=== PATIENT | male | born 1950 | race Caucasian/White ===

== ENCOUNTER 2016-07-15 11:15 | Emergency (ER) | payer OTHER ==
[2016-07-15 11:20] VITALS: BP 156/91; PULSE 81; RESP 16; TEMP 97.9; O2SAT 94
--- NOTE | 2016-07-15 11:39 | EDPHY ---
H & P Stated Complaint: Bleeding from PICC line Time Seen by Provider: 07/15/16 11:38 HPI/ROS: CHIEF COMPLAINT: Bleeding from PICC line HISTORY OF PRESENT ILLNESS: The patient presents to the ED after he has developed some bleeding from the extension tubing on his PICC line. The patient is currently receiving IV antibiotics for a postoperative staph infection. He has 4 days of antibiotics left. The patient was seen at Infectious Disease yesterday and reportedly had extension to be placed at that point time. The patient did flush his PICC line several times today but is noted some reflux of blood into the extension tubing. The patient also reported some leakage of blood from the extension tubing. The patient denies any acute fever, he has no complaints of acute low back pain or new weakness. The patient is scheduled to get IV antibiotics for an additional 4 days. REVIEW OF SYSTEMS: A comprehensive 10 point review of systems is otherwise negative aside from elements mentioned in the history of present illness. Source: Patient Exam Limitations: No limitations - Personal History Current Tetanus/Diphtheria Vaccine: Yes Current Tetanus Diphtheria and Acellular Pertussis (TDAP): Yes Tetanus Vaccine Date: 10 Y - Medical/Surgical History Hx Asthma: No Hx Chronic Respiratory Disease: No Hx Diabetes: No Hx Cardiac Disease: No Hx Renal Disease: No Hx Cirrhosis: No Hx Alcoholism: No Hx HIV/AIDS: No Hx Splenectomy or Spleen Trauma: No Other PMH: stomach bleed, cervical surgery, right shouldersurgery, eye surgery, foot surgery - Social History Smoking Status: Never smoked - Physical Exam Exam: General Appearance: Alert, no distress Eyes: Pupils equal and round no pallor or injection ENT, Mouth: Mucous membranes moist Respiratory: There are no retractions, lungs are clear to auscultation Cardiovascular: Regular rate and rhythm Gastrointestinal: Abdomen is soft and nontender, no masses, bowel sounds normal Neurological: A&O, normal motor function, normal sensory exam, normal cranial nerves Skin: Warm and dry, no rashes Musculoskeletal: Neck is supple nontender Extremities: PICC line noted to right upper extremity, there is blood in the extension tubing, no obvious bleeding in the ED. Constitutional: Initial Vital Signs Temperature (C) 36.6 C 07/15/16 11:16 Heart Rate 81 07/15/16 11:16 Respiratory Rate 16 07/15/16 11:16 Blood Pressure 156/91 H 07/15/16 11:16 O2 Sat (%) 94 07/15/16 11:16 O2 Delivery Mode Room Air Allergies/Adverse Reactions: cat dander Allergy (Verified 05/05/16 20:42) Home Medications: Medication Instructions Recorded Pantoprazole Sodium [Protonix 40mg 40 mg PO DAILY 08/26/12 (*)] Methocarbamol [Robaxin 750 mg (*)] 750 mg PO QID PRN #60 tab 05/07/16 morphINE SR [MS Contin/Oramorph SR 30 mg PO BID #60 tab 05/07/16 30 mg (*)] Allopurinol [Allopurinol 300 MG 600 mg PO DAILY 05/24/16 (RX)] Simvastatin 10 mg PO DAILY 05/24/16 Methocarbamol [Robaxin 750 mg (*)] 750 mg PO QID PRN #0 tab 05/26/16 Sennosides/Docusate Sodium 1 - 2 tab PO BID #0 tab 05/26/16 [Senokot-S] oxyCODONE/APAP 5/325 [Percocet 1 - 2 tab PO Q4HRS PRN #0 tab 05/26/16 5/325 (*)] predniSONE 10 mg PO DAILY #0 tab 05/26/16 predniSONE 20 mg PO DAILY #0 tablet 05/26/16 predniSONE 30 mg PO DAILY #0 tab 05/26/16 Medical Decision Making ED Course/Re-evaluation: In the ED we did flush the patient's PICC line in replace the valve and observe the patient without any evidence of reflux of blood into the extension tubing or leaking. The patient has no clinical evidence of a cellulitis or DVT. The patient will be discharged home with this point time. He has been instructed to return to the ED for recurrent problems or concerns. He should follow up as scheduled with his infectious disease doctor. Departure - Departure Disposition: Home, Routine, Self-Care Clinical Impression: Bleeding from PICC line Condition: Good Instructions: Peripherally Inserted Central Catheters and Midline Catheters (ED ) Additional Instructions: 1. Return to the emergency department for any recurrent bleeding, inability to flush your PICC line, fever, redness or other concerns. 2. Please follow up as scheduled with Dr. Godinez Referrals: Aye Viera NP [Primary Care Provider] - As per Instructions
== END 2016-07-15 12:27 | disposition home or self-care (01) ==
DX: T82.838A Hemorrhage due to vascular prosthetic devices, implants and grafts, initial encounter (principal); Y71.2 Prosthetic and other implants, materials and accessory cardiovascular devices associated with adverse incidents

== ENCOUNTER 2018-07-30 05:46 | Day surgery (SDC) | payer OTHER ==
[2018-07-30] MEDS ORDERED: ACETAMINOPHEN 500 MG TAB PO ONE (06:06)
[2018-07-30] MEDS ORDERED: ceFAZolin 2 GM/DEXTROSE 100 ML IV ONE (06:06)
[2018-07-30] MEDS ORDERED: LR 1,000 ML IV ONE (06:07)
[2018-07-30] MEDS ORDERED: LIDOCAINE 1% 2 ML INJ ID PRN (06:07)
[2018-07-30] MEDS ORDERED: CHLORHEXIDINE GLUC HIBICLENS 118 ML BTL TP ONE (06:28)
[2018-07-30] MEDS ORDERED: BUPIVACAINE 0.25% 30 ML SDV ONE (06:29)
[2018-07-30] MEDS ORDERED: EPINEPHrine 1 MG/ML INJ ONE (06:29)
[2018-07-30] MEDS ORDERED: THROMBIN (BOVINE) 5,000 UNIT VIAL TP ONE (06:29)
[2018-07-30] MEDS ORDERED: BACITRACIN 50,000 UNITS/10 ML SYR IRR ONE (06:30)
--- NOTE | 2018-07-30 06:52 | PDHPUP ---
History & Physical Update H&P update statement: This history and physical update is based on an assessment of the patient which was completed after admission or registration (within 24 hours), but prior to the surgery/procedure. H&P update: no change in patient's condition since H&P completed
--- NOTE | 2018-07-30 06:53 | PDANEPAE ---
ANE Past Medical History - Cardiovascular History Hx Hypertension: No Hx Arrhythmias: No Hx Chest Pain: No Hx Coronary Artery / Peripheral Vascular Disease: No Hx CHF / Valvular Disease: No Hx Palpitations: No - Pulmonary History Hx COPD: No Hx Asthma/Reactive Airway Disease: No Hx Recent Upper Respiratory Infection: No Hx Oxygen in Use at Home: No Hx Sleep Apnea: No Sleep Apnea Screening Result - Last Documented: Negative Pulmonary History Comment: CAT ALLERGIES - Neurologic History Hx Cerebrovascular Accident: No Hx Seizures: No Hx Dementia: No - Endocrine History Hx Diabetes: No - Renal History Hx Renal Disorders: No - Liver History Hx Hepatic Disorders: No - Neurological & Psychiatric Hx Hx Neurological and Psychiatric Disorders: Yes Neurological / Psychiatric History Comment: parsonage. right hand numb(fingers) . left side numbness from lower back to foot - Cancer History Hx Cancer: Yes Cancer History Comment: esophageal - Congenital Disorder History Hx Congenital Disorders: No - GI History Hx Gastrointestinal Disorders: Yes Gastrointestinal History Comment: HX GI BLEED. BARRETTS ESOPHAGUS. ACID REFLUX - Other Health History Other Health History: none - Chronic Pain History Chronic Pain: Yes (LOW BACK, L HIP, L LEG) - Surgical History Prior Surgeries: CERVICAL FUSION X2 2012. BUNIONECTOMY 2013. SHOULDER R RTC. EYE SURG L. GI BLEED. barrets esophagus tissue removal q 3 mths. t11/12 fusion ANE Review of Systems Review of Systems: - Exercise capacity METS (RN): 5 METS ANE Patient History - Allergies Allergies/Adverse Reactions: cat dander Allergy (Verified 07/16/18 11:19) - Home Medications Home Medications: Allopurinol [Allopurinol 300 MG (RX)] 300 mg PO BID 07/15/18 [Last Taken ] Cephalexin [Cephalexin] 500 mg PO BID 07/15/18 [Last Taken 07/15/18] Gabapentin [Neurontin 300 MG (*)] 300 mg PO HS PRN 07/15/18 [Last Taken Unknown] Pantoprazole Sodium [Protonix 40mg (*)] 40 mg PO BID 07/15/18 [Last Taken ] Simvastatin 20 mg PO DAILY 07/15/18 [Last Taken 07/15/18] - NPO status NPO Status: no food or drink >8 hours NPO Since - Liquids (Date): 07/29/18 NPO Since - Liquids (Time): 20:00 NPO Since - Solids (Date): 07/29/18 NPO Since - Solids (Time): 20:00 - Anes Hx Anes Hx: no prior problems - Smoking Hx Smoking Status: Never smoked - Family Anes Hx Family Hx Anesthesia Complications: none ANE Labs/Vital Signs - Vital Signs Blood Pressure: 139/92 Heart Rate: 72 Respiratory Rate: 8 O2 Sat (%): 95 Height: 198.12 cm Weight: 133.81 kg ANE Physical Exam - Airway Neck exam: FROM Mallampati Score: Class 2 Mouth exam: normal dental/mouth exam - Pulmonary Pulmonary: no respiratory distress - Cardiovascular Cardiovascular: regular rate and rhythym - ASA Status ASA Status: III ANE Anesthesia Plan Anesthesia Plan: general endotracheal anesthesia
[2018-07-30] MEDS ORDERED: MIDAZOLAM 2 MG/2 ML VIAL IVP ONE (06:58)
[2018-07-30] MEDS ORDERED: PROPOFOL 200 MG/20 ML VIAL ONE (07:05)
[2018-07-30] MEDS ORDERED: REMIFENTANIL HCL 1 MG VIAL ONE (07:05)
[2018-07-30] MEDS ORDERED: PROPOFOL/EMULSION 500 MG/50 ML BOTTLE IV ONE ×2 (07:05→08:48)
[2018-07-30] MEDS ORDERED: fentaNYL 100 MCG/2 ML INJ ONE ×2 (07:05→08:48)
[2018-07-30] MEDS ORDERED: ROCURONIUM 50 MG/5 ML VIAL ONE (07:15)
[2018-07-30] MEDS ORDERED: LIDOCAINE 2% 5 ML SDV ONE (07:15)
[2018-07-30] MEDS ORDERED: DEXAMETHASONE 4 MG/ML VIAL ONE ×2 (07:39)
[2018-07-30] MEDS ORDERED: TRANEXAMIC ACID 1000 MG IV ONE (08:00)
[2018-07-30] MEDS ORDERED: SODIUM CHLORIDE IV ONE (08:00)
[2018-07-30] MEDS ORDERED: ONDANSETRON 4 MG/2 ML VIAL IVP PRN ×2 (08:56→09:53)
[2018-07-30] MEDS ORDERED: NALOXONE HCL 0.4 MG/ML INJ IVP PRN (08:56)
[2018-07-30] MEDS ORDERED: HYDROmorphONE/DILAUDID 2 MG/ML INJ IVP PRN (08:56)
[2018-07-30] MEDS ORDERED: PROMETHAZINE HCL 25 MG/ML INJ IVP PRN (08:56)
[2018-07-30] MEDS ORDERED: fentaNYL 100 MCG/2 ML INJ IVP PRN (08:56)
[2018-07-30] MEDS ORDERED: ONDANSETRON 4 MG/2 ML VIAL ONE (09:13)
--- NOTE | 2018-07-30 09:38 | POSTANESTH ---
Post Anesthetic Evaluation Cardiovascular Status: Similar to Pre-Op Cond Respiratory Status: Similar to Pre-op Cond. Level of Consciousness/Mental Status: Alert and Oriented, Mildly Sleepy, Arousable Pain Control: Adequate, Prn Tx Ordered Nausea/Vomiting Control: Adequate, Prn Tx Ordered Complications Possibly Related to Anesthesia: None Noted
[2018-07-30] MEDS ORDERED: LACTULOSE 20 GM/30 ML UDCUP PO PRN (09:53)
[2018-07-30] MEDS ORDERED: METHOCARBAMOL 750 MG TAB PO PRN (09:53)
[2018-07-30] MEDS ORDERED: ONDANSETRON DISINTEGRATING 4 MG TAB PO PRN (09:53)
[2018-07-30] MEDS ORDERED: diphenhydrAMINE 25 MG CAP PO PRN (09:53)
[2018-07-30] MEDS ORDERED: oxyCODONE IR 5 MG TAB PO PRN (09:53)
[2018-07-30] MEDS ORDERED: BISACODYL 10 MG SUPP PR PRN (09:53)
[2018-07-30] MEDS ORDERED: MAGNESIUM HYDROXIDE 30 ML UDCUP PO PRN (09:53)
--- NOTE | 2018-07-30 09:53 | SOAPPROG ---
SOAP Progress Note Assessment/Plan: POST OP CHECK: Assessment: Doing well s/p L4/5 Limiflex and Left L45 laminotomy Plan: CPM IN PACU VU to bulb suction Keep patient in obs until DC 07/30/18 09:50 P Subjective: Awake, alert, comfortable. states his left leg feels "less numb." Objective: Vital Signs Temp Pulse Resp BP Pulse Ox 37 C 72 8 L 139/92 H 95 07/30/18 06:18 07/30/18 07:48 07/30/18 07:48 07/30/18 07:48 07/30/18 07:48 Vitals: HR: 70 BP:132/83 O2: 99% Neuro: CHAUHAN, sens + LT follows commands 5-/5 left DF,4/5 EHL, 5/5 quad,hamstring. Negative left leg SLR Right leg 5/5, sens +Lt Awake, alert, following commands ICD10 Worksheet Patient Problems: Problems Problem Status Onset Thoracic spinal stenosis Acute
[2018-07-30] MEDS ORDERED: GABAPENTIN 300 MG CAP PO PRN (09:56)
--- NOTE | 2018-07-30 10:01 | POSTOPPROG ---
Post Op Note Date of Operation: 07/30/18 Surgeon: Esteban Newman Body Work Auto Trimmer: Sammy Anglin Anesthesiologist: Livier Anesthesia: GET(General Endotracheal) Pre-op Diagnosis: L4/5 DJD, stenosis and spondylolisthesis Post-op Diagnosis: same Indication: Left leg pain Procedure: Left L4/5 hemilaminotomy and L4/5 Limiflex Findings: L4/5 stenosis Inf/Abcess present in the surg proc area at time of surgery?: No EBL: Minimal Complications: None Drains: Сергей Perkins (to bulb suction) Specimen(s): None
--- NOTE | 2018-07-30 12:27 | GOP ---
DATE OF OPERATION: 07/30/2018 SURGEON: Esteban Newman MD NEUROSURGEON: Esteban Newman MD GREEN MARKETING ANALYST: CELINA Champagne ANESTHESIA: General endotracheal. PREOPERATIVE DIAGNOSIS: 1. Severe L4-5 spinal stenosis with grade 1 spondylolisthesis. 2. Intractable back and left leg pain. 3. Morbid obesity. POSTOPERATIVE DIAGNOSIS: 1. Severe L4-5 spinal stenosis with grade 1 spondylolisthesis. 2. Intractable back and left leg pain. 3. Morbid obesity. PROCEDURE PERFORMED: Minimally invasive left-sided L4-5 posterior hemilaminectomy medial facetectomy and foraminotomy with central canal decompression. Placement of limited flex device at L4-5. Use of intraoperative microscopy and fluoroscopy. FINDINGS: ESTIMATED BLOOD LOSS: Trace. INDICATIONS: The patient is a 67-year-old man with intractable low back pain and left lower extremity radicular symptoms secondary to severe spinal stenosis and grade 1 spondylolisthesis. He has failed conservative care and presents now for surgical decompression and placement of a Limiflex device. DESCRIPTION OF PROCEDURE: After informed consent was obtained, the patient was taken to the operating room and placed in the prone position on the Сергей table. The lumbosacral area was prepped and draped in sterile fashion. After fluoroscopic localization of the correct level, the subcutaneous and intramuscular tissues were infiltrated with local anesthesia. A midline linear incision was then created over the L4-5 spinous processes. This was carried down to the fascial layer, which was then incised using monopolar electrocautery and carried in the subperiosteal plane along the spinous processes and lamina at the L4-5 level. Intraoperative fluoroscopy was again utilized to verify the correct level. Following this, a minimally invasive posterior hemilaminectomy defect was created with a medial facetectomy due to the amount of lateral recess stenosis. There was a synovial cyst there that was resected and the left L5 nerve root and central canal and thecal sac were thoroughly decompressed. Following this, the Limiflex device was placed in the standard fashion using biplanar fluoroscopic image guidance. A drain was then placed. The wound was copiously irrigated with antibiotic irrigation. The subcutaneous and intramuscular tissues were re-infiltrated with local anesthesia. The wound was closed in a layered fashion using interrupted Vicryl sutures, followed by Steri-Strips on the skin. COMPLICATIONS: None. DISPOSITION: The patient is currently in the process of being repositioned for extubation. /[id number]/MODL MTDD
[2018-07-30 13:29] VITALS: BP 101/63
[2018-07-30] MEDS ORDERED: ACETAMINOPHEN 500 MG TAB PO SCH (14:00)
[2018-07-30] MEDS ORDERED: POLYETHYLENE GLYCOL 3350 17 GM PKT PO SCH (16:00)
[2018-07-30] MEDS ORDERED: FAMOTIDINE 20 MG TAB PO SCH (21:00)
[2018-07-30] MEDS ORDERED: SENNOSIDES/DOCUSATE SODIUM TAB PO SCH (21:00)
[2018-07-30] MEDS ORDERED: PANTOPRAZOLE SODIUM 40 MG TAB PO SCH (21:00)
[2018-07-30] MEDS ORDERED: ALLOPURINOL 300 MG TAB PO SCH (21:00)
[2018-07-31] MEDS ORDERED: ENOXAPARIN 40 MG/0.4 ML SYR SC SCH (09:00)
[2018-07-31] MEDS ORDERED: ATORVASTATIN CALCIUM 10 MG TAB PO SCH (09:00)
== END 2018-07-30 13:16 | disposition home or self-care (01) ==
LOC: UNDOADMOB 05:46 → INTOOBSV 05:46 → FSGY 05:46 → F3N 05:46 → EDSTATUS 10:45 → UNDODISOB 13:16 → FSGY 13:16
PROVIDERS: ATTEND Neurological Surgery
PROC: 8E0WXBZ Computer Assisted Procedure of Trunk Region (ICD-10-PCS; principal; 2018-07-30 07:15)
PROC: 00NY0ZZ Release Lumbar Spinal Cord, Open Approach (ICD-10-PCS; principal; 2018-07-30 07:15)
PROC: 0QH004Z Insertion of Internal Fixation Device into Lumbar Vertebra, Open Approach (ICD-10-PCS; principal; 2018-07-30 07:15)
PROC: BR191ZZ Fluoroscopy of Lumbar Spine using Low Osmolar Contrast (ICD-10-PCS; principal; 2018-07-30 07:15)
DX: M43.16 Spondylolisthesis, lumbar region (principal); M48.061 Spinal stenosis, lumbar region without neurogenic claudication; M51.36 Other intervertebral disc degeneration, lumbar region; K22.70 Barrett's esophagus without dysplasia; E66.01 Morbid (severe) obesity due to excess calories; Z86.14 Personal history of Methicillin resistant Staphylococcus aureus infection; Z98.1 Arthrodesis status
CPT/HCPCS: C1713; J0171; J0690; J1100; J2250; J2405; J2704; J3010

== ENCOUNTER 2018-08-12 15:34 | Emergency (ER) | payer OTHER ==
--- NOTE | 2018-08-12 16:16 | EDPHY ---
General - History Smoking Status: Never smoked Time Seen by Provider: 08/12/18 15:46 Narrative: CLINICAL IMPRESSION: URTICARIA ASSESSMENT/PLAN: Pleasant 67-year-old male presents to the emergency department with 2 days of scattered urticaria in the setting of lumbar back surgery. Please see HPI for full details. Patient has stable vital signs, no fever or chills, no nausea, vomiting, malaise, weakness and no incision site dehiscence or signs of cellulitis, epidural abscess, or discharge. 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 I spoke with Dr. Godinez today who did not feel that patient's antibiotic regimen need to be changed nor did he feel additional antibiotic should be added given that there is no obvious source of infection. This may simply be a delayed reaction to either pain medication or anesthesia. Patient has no respiratory complaints and no hypoxia. I also discussed with Umesh from neurosurgery who prefer that we avoid steroids for patient's urticaria secondary recent surgery. Patient was recommended to take antihistamines and H2 blockers at home. A prescription for hydroxyzine was provided. He has a follow-up appointment with Neurosurgery in 2 days and was advised to follow up with infectious disease as well. Continue daily Keflex. Warning signs for return to emergency department sooner outlined and discharge. DIFFERENTIAL DX: Differential includes but not limited to urticarial reaction, delayed allergic reaction, unlikely early presentation of staph infection. ED PROCEDURES: See lab and/or imaging results below ED COURSE: 4:15 p.m.: Discussed with Dr. Godinez. He does not feel that he needs to add any additional antibiotic therapy aside from patient's daily Keflex. He encouraged allergic reaction treatment and close monitoring. Unsure at this point if this is a delayed reaction versus early presentation of staph. He is happy to see the patient in clinic. 4:19 p.m.: Discussed with doctor Umesh V physician dam tender assistant from neurosurgery. It was felt patient should avoid steroids given his recent surgery but is okay to have other antihistamine therapy. This provider believes patient has a postop follow-up appointment this coming Sunday or . 5:00 p.m.: Patient reassessed, states he is feeling about the same. No worsening urticaria, no respiratory symptoms, hypoxia or respiratory distress. No nausea or vomiting. Will plan to discharge with prescription for hydroxyzine to use as needed. Follow up with Neurosurgery and Infectious Disease this week. CHIEF COMPLAINT: Hives all over HPI: Very pleasant 67-year-old male presents to the emergency department with approximately 2 and half days of pruritic, worsening hives to the inner thighs, left buttock, inner knees, right forearm, and scalp. Patient is 2 weeks postop lumbar spine surgery by Dr. Núñez. He reports in 2016 he had "the exact same reaction after back surgery". He was seen in the emergency department treated for an allergic reaction however 4 days after that treatment he developed severe staph infection in his surgical site and was admitted to the hospital, went through surgery again, and was on a PICC with IV antibiotics for 11 weeks. Patient is very concerned that he may have the same problem again. He is followed by Dr. Godinez and has been on Keflex daily since 2016. He contacted his neurosurgeon and Dr. Godinez today and was told to come to the ED. His only new medication is hydrocodone which he stops taking 3 or 4 days ago. He has been using an [id number] anti-itch cream. He reports no fevers, chills and states his back "feels the best today that has all week" . His reports today he does have a little bit of a decreased appetite and is feeling slightly more fatigued. PAST MEDICAL HISTORY: Esophageal cancer, prior orthopedic surgeries, 2 weeks postop lumbar spine surgery See nurse/triage notes for additional history if applicable Pertinent Past Surgical History: Multiple orthopedic surgeries and back surgery Family History: Noncontributory Social History: , here with his , past history of staph infection in vertebral hardware. REVIEW OF SYSTEMS: All other systems negative Constitutional: No fever, no chills, appetite change. Eyes: No discharge, vision change ENT: No sore throat, congestion, ear pain. Cardiovascular: No chest pain, no palpitations. Respiratory: No cough, no shortness of breath. Gastrointestinal: No abdominal pain, no vomiting, diarrhea. Genitourinary: No hematuria, dysuria, flank pain, pelvic pain Musculoskeletal: Improving back pain, joint swelling, joint pain, myalgias. Skin: Rash to right forearm, scalp, inguinal region, and left buttock Neurological: No headache, dizziness, weakness. PHYSICAL EXAM: General Appearance: Alert, oriented, appropriate, cooperative, NAD, well hydrated, non-toxic appearing, VSS, no hypoxia or respiratory distress. HEENT: TMs are clear bilaterally no perforation or FB, no injection, no evidence of serous or mucopurulent otitis. Oropharynx clear is no erythema or exudates, no tonsillar hypertrophy or asymmetry. No intraoral lesions Dentition without abnormality. Eyes: PERRLA, no acute vision change, nystagmus, swelling, discharge, pain or photosensitivity. Conjunctiva pink, no pallor or injection Neck: Supple, nontender, no lymphadenopathy, no midline pain, FROM, no meningismus. Respiratory: There are no retractions, lungs are clear to auscultation. Cardiac: Regular rate and rhythm, no murmurs or gallops. Gastrointestinal: Abdomen is soft, nontender Skin: Blanching, urticarial lesions noted to the scalp, right forearm, bilateral inguinal regions, and left upper buttock. No signs of secondary infection. Recent lumbar spine surgical incision is well appearing, no erythema , fluctuance, dehiscence, discharge, or suggestion of cellulitis, deep space abscess, epidural abscess, necrotizing fasciitis or osteomyelitis Musculoskeletal: Extremities are symmetrical, full range of motion, no tenderness, deformity, swelling, or erythema. Patient ambulates without difficulty. No reports of bowel or bladder incontinence or saddle anesthesia Psychiatric: Patient is oriented X 3, there is no agitation. MEDICAL DECISION MAKING: Patient was seen independently. Secondary supervising physician at time of evaluation was Dr. Kendall . Diagnosis: Urticaria. New, requires workup Summary: See Assessment and Plan for summary of ED visit Discussed patient with another provider: Umesh Coleman from neurosurgery Patient Progress: Stable for discharge. (Florin Noe) The patient was evaluated and managed by the physician dam tender assistant. I have reviewed this chart and I agree with the findings and plan of care as documented , as indicated by my signature. I am the secondary supervising physician. ( Yoko Kendall) - Objective Vital Signs: Initial Vital Signs Temperature (C) 36.4 C 08/12/18 15:41 Heart Rate 93 08/12/18 15:41 Respiratory Rate 17 08/12/18 15:41 Blood Pressure 133/106 H 08/12/18 15:41 O2 Sat (%) 95 08/12/18 15:41 O2 Delivery Mode Room Air Allergies/Adverse Reactions: cat dander Allergy (Verified 07/16/18 11:19) Home Medications: Medication Instructions Recorded Allopurinol [Allopurinol 300 MG 300 mg PO BID 07/15/18 (RX)] Cephalexin 500 mg PO BID 07/15/18 Gabapentin [Neurontin 300 MG (*)] 300 mg PO HS PRN 07/15/18 Pantoprazole Sodium [Protonix 40mg 40 mg PO BID 07/15/18 (*)] Simvastatin 20 mg PO DAILY 07/15/18 hydrOXYzine HCL [hydrOXYzine HCL 25 mg PO Q8 PRN #10 tab 08/12/18 (RX)] Medications Given: Discontinued Medications Diphenhydramine HCl (Benadryl) 50 mg PO EDNOW ONE Stop: 08/12/18 16:21 Last Admin: 08/12/18 16:24 Dose: 50 mg Famotidine (Pepcid) 40 mg PO EDNOW ONE Stop: 08/12/18 16:21 Last Admin: 08/12/18 16:24 Dose: 40 mg Departure - Departure Disposition: Home, Routine, Self-Care Clinical Impression: Urticaria Condition: Good Instructions: Urticaria (ED) Additional Instructions: DISCHARGE INSTRUCTIONS FROM YOUR DOCTOR Thank you for visiting our emergency department today. Please keep in mind that discharge from the emergency department does not mean that there is nothing wrong - it simply means that we have not identified an emergency condition that requires further evaluation or treatment in the hospital. You should always plan to follow up with primary care for re-evaluation of your condition in the next 2-3 days. If you have been referred to a specialist, please call as soon as possible (today or tomorrow) to schedule your follow up appointment at the appropriate time. WE HAVE SPOKEN TO BOTH HER NEUROSURGEON AN INFECTIOUS DISEASE DOCTOR TODAY. THEY DID NOT FEEL THAT WE NEED TO INITIATE IV ANTIBIOTIC THERAPY OR CHANGE HER CURRENT ANTIBIOTIC REGIMEN. THEY HAVE RECOMMENDED AVOIDING STEROIDS DUE TO HER RECENT SURGERY. WE RECOMMEND THAT YOU USE ANTIHISTAMINES AND H2 BLOCKERS AT HOME. YOU CAN USE ELO DURING THE DAY AND BENADRYL AT NIGHT. PEPCID AC CAN BE USED ONCE OR TWICE DAILY. WE ALSO GAVE A PRESCRIPTION FOR HYDROXYZINE WHICH WILL FURTHER HELP ITCHING BUT MAKE YOU MORE TIRED. PLEASE FOLLOW-UP WITH THEIR CLINICS THIS WEEK. RETURN TO THE EMERGENCY DEPARTMENT IMMEDIATELY FOR WORSENING RASH, INCISION SITE REDNESS OR DISCHARGE, FEVER OR CHILLS, GENERALIZED FEELING UNWELL, NAUSEA, VOMITING OR ANY OTHER CONCERN. People present with illnesses and injuries in different ways, and it is always possible that we have missed something. You may always return for re-evaluation if symptoms worsen or if they are not improving or if you develop new/different symptoms. Again, thank you for choosing our emergency department. We hope that you feel better. Referrals: Ruben Francois MD [Primary Care Provider] - As per Instructions Esteban Newman MD [Medical Doctor] - As per Instructions Elvis Godinez MD [Medical Doctor] - As per Instructions Prescriptions: hydrOXYzine HCL [hydrOXYzine HCL (RX)] 25 mg PO Q8 PRN #10 tab PRN Reason: Itching
[2018-08-12] MEDS ORDERED: diphenhydrAMINE 25 MG CAP PO ONE (16:20)
[2018-08-12] MEDS ORDERED: FAMOTIDINE 20 MG TAB PO ONE (16:20)
[2018-08-12 17:22] VITALS: BP 127/79
== END 2018-08-12 17:22 | disposition home or self-care (01) ==
DX: L50.9 Urticaria, unspecified (principal)

== ENCOUNTER 2018-08-15 12:38 | Emergency (ER) | payer OTHER ==
--- NOTE | 2018-08-15 13:30 | EDPHY ---
H & P Time Seen by Provider: 08/15/18 12:49 HPI/ROS: CHIEF COMPLAINT: Skin rash HISTORY OF PRESENT ILLNESS: 67-year-old man had lumbar spine surgery in July 30. Said he had a similar rash with his previous spine surgery that resolved after steroids. This was in 2015. Says he used this same scrubbed preoperatively both times was worried that was the source. He presented 2 days ago with hives and urticaria was treated with antihistamines. He presents today with worsening rash, says that it "exploded" and he is unable to tolerate the symptoms of being very itchy all over. Not associated with tongue swelling or throat tightness or wheezing or abdominal cramping or vomiting. Not better with antihistamines at this time. Symptoms severe. REVIEW OF SYSTEMS: Eye: no change in vision ENT: no sore throat Cardiac: no chest pain or syncope Pulmonary: no cough or SOB Abdomen: no vomiting, diarrhea, abdominal pain Musculoskeletal: no back pain Skin: HPI Neuro: no headache Constitutional: no fever : no urinary symptoms A comprehensive 10 point review of systems is otherwise negative aside from elements mentioned in the history of present illness. PAST MEDICAL HISTORY: Includes multiple spine surgeries, esophageal cancer, eye and foot surgery. Social history: Nonsmoker General Appearance: Alert and conversant, cooperative. Eyes: No scleral icterus. ENT, Mouth: Normal mucous membranes. No angioedema. Respiratory: Normal respiratory effort, breath sounds equal, lungs are clear to auscultation. No wheezing. Cardiovascular: Regular rate and rhythm. Gastrointestinal: Abdomen is soft and non tender. Neurological: Alert, ambulatory, normal speech. Skin: Lumbar incision clean dry and intact. He has diffuse urticaria which is raised red welts without tenderness or lymphangitis or ecchymosis or bruising. Musculoskeletal: No peripheral edema. Psychiatric: Not agitated. Emergency Department course/MDM: Patient clearly presents with diffuse urticaria. Call is placed to Neurosurgery. Discussed with Merritt/Naveen from Neurosurgery, ok to use steroids. Epi 0.15 IM and oral prednisone 60 in the emergency department. Does not have evidence of anaphylaxis or airway involvement. Steroids discussed and consented. Smoking Status: Never smoked Constitutional: Initial Vital Signs Temperature (C) 36.4 C 08/15/18 12:45 Heart Rate 95 08/15/18 12:45 Respiratory Rate 16 08/15/18 12:45 Blood Pressure 161/91 H 08/15/18 12:45 O2 Sat (%) 92 08/15/18 12:45 O2 Delivery Mode Room Air Allergies/Adverse Reactions: cat dander Allergy (Verified 08/15/18 12:44) Home Medications: Medication Instructions Recorded Allopurinol [Allopurinol 300 MG 300 mg PO BID 07/15/18 (RX)] Cephalexin 500 mg PO BID 07/15/18 Gabapentin [Neurontin 300 MG (*)] 300 mg PO HS PRN 07/15/18 Pantoprazole Sodium [Protonix 40mg 40 mg PO BID 07/15/18 (*)] Simvastatin 20 mg PO DAILY 07/15/18 hydrOXYzine HCL [hydrOXYzine HCL 25 mg PO Q8 PRN #10 tab 08/12/18 (RX)] predniSONE 10 mg PO AD #15 tab 08/15/18 Medical Decision Making Differential Diagnosis: Considered but think unlikely to have thrombocytopenia, cellulitis, anaphylaxis , surgical infection. - Data Points Medications Given: Discontinued Medications Epinephrine HCl (Epinephrine) 0.15 mg IM EDNOW ONE Stop: 08/15/18 13:52 Last Admin: 08/15/18 13:58 Dose: 0.15 mg Prednisone (Prednisone) 60 mg PO EDNOW ONE Stop: 08/15/18 13:52 Last Admin: 08/15/18 13:57 Dose: 60 mg Departure - Departure Disposition: Home, Routine, Self-Care Clinical Impression: Urticaria Condition: Good Instructions: Urticaria (ED) Additional Instructions: You got epinephrine and prednisone in the emergency department. Return right away if you get abdominal cramping or vomiting, tongue lip or throat swelling, wheezing or trouble breathing. Continue with the oral antihistamines as already prescribed until your rash has resolved or at least gotten a lot better. Referrals: Ruben Francois MD [Primary Care Provider] - As per Instructions Prescriptions: predniSONE 10 mg PO AD #15 tab
[2018-08-15] MEDS ORDERED: predniSONE 20 MG TAB PO ONE (13:51)
[2018-08-15] MEDS ORDERED: EPINEPHrine 1 MG/ML INJ IM ONE (13:51)
[2018-08-15 14:15] VITALS: BP 124/97
== END 2018-08-15 14:15 | disposition home or self-care (01) ==
DX: L50.9 Urticaria, unspecified (principal)
CPT/HCPCS: 96372; 99284; J0171; J7512

== ENCOUNTER → 2018-11-05 | Outpatient (CLI) | payer OTHER | LOC: FIMAGING 14:04 → EDSTATUS 14:05 → FIMAGING 14:09 | PROVIDERS: ATTEND Physician Assistant Surgical | DX: M51.36 Other intervertebral disc degeneration, lumbar region (principal); M43.16 Spondylolisthesis, lumbar region; Z98.1 Arthrodesis status ==